=== PATIENT | male | born 1965 | race Caucasian/White ===

== ENCOUNTER 2016-11-15 13:29 | Inpatient (IN) | payer BC, OTHER ==
[~2016-11-15] VITALS: Ht 175.3 cm; Wt 93.9 kg
[2016-11-15 14:10] LABS: HEMOGLOBIN 11.8 gm/dl (14.0-17.5); RED BLOOD COUNT 4.28 M/UL (4.20-5.50); WHITE BLOOD COUNT 12.8 K/UL (4.5-11.0)
[2016-11-15 15:06] LABS: BUN/CREATININE RATIO 16 (0-10)
[2016-11-15 19:16] LABS: HEMOGLOBIN 10.7 gm/dl (14.0-17.5); RED BLOOD COUNT 3.91 M/UL (4.20-5.50)
[2016-11-15 19:17] LABS: WHITE BLOOD COUNT 17.3 K/UL (4.5-11.0)
[2016-11-15 19:46] LABS: BUN/CREATININE RATIO 16 (0-10)
[2016-11-16 03:35] LABS: HEMOGLOBIN 10.6 gm/dl (14.0-17.5); RED BLOOD COUNT 3.93 M/UL (4.20-5.50)
[2016-11-16 04:00] LABS: BUN/CREATININE RATIO 18 (0-10)
[2016-11-17 02:55] LABS: HEMOGLOBIN 10.7 gm/dl (14.0-17.5); RED BLOOD COUNT 3.9 M/UL (4.20-5.50); WHITE BLOOD COUNT 12.9 K/UL (4.5-11.0)
[2016-11-17 03:14] LABS: BUN/CREATININE RATIO 20 (0-10)
[2016-11-17 20:29] LABS: HEMOGLOBIN 12.2 gm/dl (14.0-17.5); WHITE BLOOD COUNT 12.6 K/UL (4.5-11.0)
[2016-11-17 20:32] LABS: RED BLOOD COUNT 4.45 M/UL (4.20-5.50)
[2016-11-17 20:50] LABS: BUN/CREATININE RATIO 23 (0-10)
[2016-11-18 03:19] LABS: HEMOGLOBIN 12.1 gm/dl (14.0-17.5); RED BLOOD COUNT 4.44 M/UL (4.20-5.50); WHITE BLOOD COUNT 11.6 K/UL (4.5-11.0)
[2016-11-18 04:01] LABS: BUN/CREATININE RATIO 24 (0-10)
[2016-11-19 04:30] LABS: HEMOGLOBIN 12.3 gm/dl (14.0-17.5); RED BLOOD COUNT 4.49 M/UL (4.20-5.50)
[2016-11-19 04:54] LABS: BUN/CREATININE RATIO 26 (0-10)
[2016-11-19] MEDS ORDERED: ASPIRIN EC81 MG PO (10:43)
[2016-11-19] MEDS ORDERED: LIPITOR TAB 2020 MG PO (10:44)
[2016-11-19] MEDS ORDERED: PLAVIX 75 MG TA75 MG PO (10:45)
[2016-11-19] MEDS ORDERED: COREG 3.125M3.125 MG PO (10:45)
[2016-11-19] MEDS ORDERED: LISINOPRIL5 MG PO (10:46)
[2016-11-19] MEDS ORDERED: PULMICORT FLEX90 MCG INH (10:48)
[2016-11-19] MEDS ORDERED: LASIX40 MG PO (10:49)
[2016-11-19] MEDS ORDERED: POTASSIUM CHLO10 MEQ PO (10:50)
== END 2016-11-19 11:30 | disposition home or self-care (01) | DRG 246 ==
LOC: ER1 13:29 → CCU 16:00 → ZEROF 16:00 → CCU 18:42 → MED SURG 4 11-18 23:45
PROVIDERS: Emergency Medicine; Internal Medicine; Internal Medicine Critical Care Medicine; ADMIT Hospitalist
PROC: 0BH17EZ Insertion of Endotracheal Airway into Trachea, Via Natural or Artificial Opening (ICD-10-PCS; principal; 2016-11-15)
PROC: 5A1945Z Respiratory Ventilation, 24-96 Consecutive Hours (ICD-10-PCS; 2016-11-15)
PROC: 027034Z Dilation of Coronary Artery, One Artery with Drug-eluting Intraluminal Device, Percutaneous Approach (ICD-10-PCS; 2016-11-19)
PROC: B2111ZZ Fluoroscopy of Multiple Coronary Arteries using Low Osmolar Contrast (ICD-10-PCS; 2016-11-19)
PROC: 4A023N7 Measurement of Cardiac Sampling and Pressure, Left Heart, Percutaneous Approach (ICD-10-PCS; 2016-11-19)
DX: I21.4 Non-ST elevation (NSTEMI) myocardial infarction (principal); I50.21 Acute systolic (congestive) heart failure; J96.01 Acute respiratory failure with hypoxia; N17.9 Acute kidney failure, unspecified; I13.0 Hypertensive heart and chronic kidney disease with heart failure and stage 1 through stage 4 chronic kidney disease, or unspecified chronic kidney disease; J98.11 Atelectasis; F15.20 Other stimulant dependence, uncomplicated; F11.20 Opioid dependence, uncomplicated; I42.9 Cardiomyopathy, unspecified; I25.10 Atherosclerotic heart disease of native coronary artery without angina pectoris; I11.0 Hypertensive heart disease with heart failure; I27.2 Other secondary pulmonary hypertension; I16.0 Hypertensive urgency; F17.210 Nicotine dependence, cigarettes, uncomplicated; E78.5 Hyperlipidemia, unspecified; N18.1 Chronic kidney disease, stage 1; F12.20 Cannabis dependence, uncomplicated; J44.9 Chronic obstructive pulmonary disease, unspecified; G47.33 Obstructive sleep apnea (adult) (pediatric); Z88.6 Allergy status to analgesic agent; Z82.49 Family history of ischemic heart disease and other diseases of the circulatory system; G89.29 Other chronic pain; M54.9 Dorsalgia, unspecified
CPT/HCPCS: ECHO; 31500; 36415; 36600; 51702; 71010; 71020; 80048; 80053; 80061; 80307; 81001; 82330; 82550; 82553; 82803; 83036; 83605; 83735; 83874; 83880; 84100; 84132; 84439; 84443; 84480; 84484; 85025; 85027; 85347; 85379; 85610; 85730; 86039; 86140; 87040; 93005; 93306; 94002; 94003; 94640; 94660; 94664; 96374; 96375; 96376; 99291; A4628; C1725; C1769; C1874; C1887; C9113; C9600; J0330; J0456; J0461; J0583; J0696; J1644; J1940; J2250; J2543; J2930; J7030; J7050; J7070; Q2039; Q9963

== ENCOUNTER 2017-01-16 03:36 | Inpatient (IN) | payer OTHER ==
[~2017-01-16] VITALS: Ht 175.3 cm; Wt 83.9 kg
[~2017-01-16 03:36] MED LIST: ASPIRIN EC81 MG PO; COREG 3.125M3.125 MG PO; LASIX40 MG PO; LIPITOR TAB 2020 MG PO; LISINOPRIL5 MG PO; PLAVIX 75 MG TA75 MG PO; POTASSIUM CHLO10 MEQ PO; PULMICORT FLEX90 MCG INH
[2017-01-16 04:49] LABS: HEMOGLOBIN 11.3 gm/dl (14.0-17.5); RED BLOOD COUNT 4.21 M/UL (4.20-5.50)
[2017-01-16 05:18] LABS: BUN/CREATININE RATIO 13 (0-10)
[2017-01-17 06:24] LABS: RED BLOOD COUNT 4.81 M/UL (4.20-5.50); WHITE BLOOD COUNT 8.6 K/UL (4.5-11.0)
[2017-01-17 06:41] LABS: BUN/CREATININE RATIO 16 (0-10)
[2017-01-17] MEDS ORDERED: ACETAMINOPHEN325 MG PO (12:10)
[2017-01-17] MEDS ORDERED: ECOTRIN81 MG PO (12:12)
== END 2017-01-17 12:50 | disposition home or self-care (01) | DRG 293 ==
LOC: ER1 03:36 → MED SURG 4 06:45 → ZEROF 06:45 → MED SURG 4 07:57
PROVIDERS: Student in an Organized Health Care Education/Training Program; ADMIT Internal Medicine Infectious Disease
DX: I11.0 Hypertensive heart disease with heart failure (principal); I50.23 Acute on chronic systolic (congestive) heart failure; F17.210 Nicotine dependence, cigarettes, uncomplicated; I25.2 Old myocardial infarction; Z82.49 Family history of ischemic heart disease and other diseases of the circulatory system; E78.5 Hyperlipidemia, unspecified; I25.10 Atherosclerotic heart disease of native coronary artery without angina pectoris; D64.9 Anemia, unspecified; F19.10 Other psychoactive substance abuse, uncomplicated; E66.9 Obesity, unspecified; Z68.30 Body mass index [BMI] 30.0-30.9, adult
CPT/HCPCS: 36415; 71010; 71020; 80053; 81001; 82550; 82553; 83605; 83874; 83880; 84484; 85025; 87040; 87086; 93005; 94640; 96372; 96374; 96375; 99285; J1650; J1940; J2543; J3370; J7050